=== PATIENT | male | born 1960 | race Caucasian/White ===

== ENCOUNTER 2021-09-04 07:08 | Day surgery (SDC) | payer MEDICARE ==
[~2021-09-04] VITALS: Ht 175.3 cm; Wt 104.2 kg
[2021-09-04] MEDS ORDERED: LEXAPRO 10MG10 MG PO (08:27)
[2021-09-04] MEDS ORDERED: HCTZ 25MG TAB25 MG PO (08:28)
[2021-09-04] MEDS ORDERED: NORVASC 10MG10 MG PO (08:28)
[2021-09-04] MEDS ORDERED: DEPAKOTE ER 50500 MG PO (08:28)
[2021-09-04] MEDS ORDERED: DOXYCYCLINE HY100 MG PO (08:29)
[2021-09-04 08:30] VITALS: BP 105/64; PULSE 64; TEMP 97.9
[2021-09-04] MEDS ORDERED: PLAVIX 75MG TAB75 MG PO (08:30)
[2021-09-04] MEDS ORDERED: LIPITOR 40MG TA40 MG PO (08:30)
[2021-09-04] MEDS ORDERED: HYTRIN 2MG CAPSU2 MG PO (08:30)
[2021-09-04] MEDS ORDERED: ASPIRIN 81M81 MG/TA2 PO (08:31)
[2021-09-04] MEDS ORDERED: SPIRIVA RE2.5 MCG/Ac IH (08:31)
[2021-09-04 10:20] VITALS: BP 130/86; PULSE 63; TEMP 97.2
[2021-09-04 10:30] VITALS: BP 127/85; PULSE 72
[2021-09-04 10:45] VITALS: BP 140/88; PULSE 61
[2021-09-04 13:02] VITALS: BP 124/89; PULSE 63
== END 2021-09-04 11:25 | disposition home or self-care (01) ==
LOC: SDCO 07:08
DX: C34.11 Malignant neoplasm of upper lobe, right bronchus or lung (principal); J98.11 Atelectasis; J43.9 Emphysema, unspecified; F17.210 Nicotine dependence, cigarettes, uncomplicated; Z79.899 Other long term (current) drug therapy
CPT/HCPCS: J2704; J7120